=== PATIENT | male | born 1985 | race Caucasian/White ===

== ENCOUNTER 2022-11-10 13:35 | Emergency (ER) | payer BC ==
[~2022-11-10] VITALS: Ht 172.7 cm; Wt 86.6 kg
--- NOTE | 2022-11-10 14:14 | NUR ---
37 years old male walk in to er c/o chronic marion knee pain, no hematoma.
[2022-11-10 14:39] VITALS: BP 130/70
--- NOTE | 2022-11-10 14:40 | NUR ---
patient condition stable d/c home with instructions after care reviewed understood left er with crutches.
== END 2022-11-10 14:41 | disposition home or self-care (01) ==
LOC: ER 13:35
DX: M25.562 Pain in left knee (principal); M25.561 Pain in right knee; R23.1 Pallor
CPT/HCPCS: A4663